=== PATIENT | female | born 1935 | race Caucasian/White ===

== ENCOUNTER 2016-08-05 13:18 | Emergency (ER) | payer MEDICARE ==
[~2016-08-05] VITALS: Ht 157.5 cm; Wt 67.2 kg
[2016-08-05 15:10] VITALS: TEMP 97.8
--- NOTE | 2016-08-05 15:23 | PD ---
HPI Chief Complaint: Fall Time Seen by Provider: 15:23 Travel History International Travel<30 days: No Contact w/Intl Traveler<30days: No Traveled to known affect area: No History of Present Illness HPI 81-year-old female with a history of hypertension, atrial fibrillation anticoagulated on Coumadin, CHF is brought to the emergency department by EMS for evaluation of right shoulder pain status post trip and fall. The patient states that she is here visiting friends and was going up to their condo, walking into the elevator when the elevator door closed too soon causing her to trip falling forward onto her right face and right shoulder. Denies loss of consciousness. Complains of pain in her right shoulder radiating down to her right hand. States that she is unable to move her right shoulder or elbow due to the pain. States she is having to hold her right arm up with her left arm due to the pain. She denies any loss of consciousness, headache, dizziness, nausea, vomiting, vision changes, neck pain, back pain, numbness or tingling. No other complaints. The patient is a snowbird from [place] that lives in [place] 6 months of the year but was visiting friends in [place] today. PFSH Past Medical History Hx Anticoagulant Therapy: Yes (WARFARIN ) Social History Tobacco Use: No Allergies-Medications (Allergen,Severity, Reaction): Coded Allergies: Iodine (Verified Allergy, Unknown, 08/05/16) Levaquin (Verified Allergy, Unknown, 08/05/16) Penicillin (Verified Allergy, Unknown, 08/05/16) Uncoded Allergies: ZICAM (Allergy, Unknown, 08/05/16) Review of Systems Except as stated in HPI: all other systems reviewed are Neg Physical Exam Narrative GENERAL: Well-nourished and well-developed pleasant patient in no acute distress. SKIN: There is a 1 cm laceration above the right eye. HEAD: Normocephalic and atraumatic. Mild swelling and bruising noted to the right periorbital and zygomatic arch with tenderness to palpation. EYES: No scleral icterus, injection, or drainage. PERRLA. EOMI. No hyphema present. ENT: No septal hematoma or hemotympanum noted. Oropharynx is clear and the airway is patent. NECK: Supple and the trachea is midline. No obvious deformities, crepitus, or midline tenderness noted. CARDIOVASCULAR: Regular rate and rhythm. RESPIRATORY: Breath sounds are equal bilaterally with no accessory muscle use, wheezing, rhonchi, or crackles. GASTROINTESTINAL: Abdomen is soft, non-tender, and nondistended. MUSCULOSKELETAL: Swelling of the right humerus with tenderness to palpation and decreased range of motion. No tenderness to palpation or swelling of the right elbow, forearm, wrist or hand. Assistant Front End Manager strength 5/5. Radial and ulnar pulses 2+ bilaterally. Capillary refill is within normal limits. Sensation is intact. No obvious deformities, swelling, cyanosis, or ecchymosis is present throughout the upper and lower extremities. Patient has full range of motion in lower extremities and left upper extremity. BACK: Nontender without any obvious deformities, bony point tenderness, or crepitus noted throughout the thoracic and lumbar vertebrae. NEUROLOGICAL: Awake, alert, and oriented. Normal speech and gait. Cranial nerves are grossly intact. Data Data Last Documented VS Vital Signs Date Time Temp Pulse Resp B/P Pulse Ox O2 Delivery O2 Flow Rate FiO2 08/05/16 16:23 60 18 175/81 97 Room Air 08/05/16 15:10 97.8 Orders Complete Blood Count With Diff (08/05/16 15:19) Comprehensive Metabolic Panel (08/05/16 15:19) Prothrombin Time / Inr (Pt) (08/05/16 15:19) Act Partial Throm Time (Ptt) (08/05/16 15:19) Iv Access Insert/Monitor (08/05/16 15:19) Ecg Monitoring (08/05/16 15:19) Oximetry (08/05/16 15:19) NPO (08/05/16 15:19) Sodium Chloride 0.9% Flush (Ns Flush) (08/05/16 15:30) Electrocardiogram (08/05/16 15:19) Morphine Inj (Morphine Inj) (08/05/16 15:30) Ct Brain W/O Iv Contrast(Rout) (08/05/16 15:19) Ct Cerv Spine W/O Contrast (08/05/16 15:19) Ct Facial Bones W/O Iv Cont (08/05/16 15:19) Humerus (Min 2vws) (08/05/16 15:19) Tetanus/Diphtheria Tox Adult (Tetanus/Di (08/05/16 15:30) Lidocai-Epi 1%-1:100,000 Inj (Xylocaine- (08/05/16 15:30) Splint Or Brace Apply/Monitor (08/05/16 17:21) Labs Laboratory Tests Test 08/05/16 15:48 White Blood Count 7.5 TH/MM3 Red Blood Count 4.28 MIL/MM3 Hemoglobin 13.7 GM/DL Hematocrit 40.4 % Mean Corpuscular Volume 94.5 FL Mean Corpuscular Hemoglobin 32.1 PG Mean Corpuscular Hemoglobin 34.0 % Concent Red Cell Distribution Width 13.1 % Platelet Count 195 TH/MM3 Mean Platelet Volume 9.0 FL Neutrophils (%) (Auto) 70.8 % Lymphocytes (%) (Auto) 19.6 % Monocytes (%) (Auto) 7.2 % Eosinophils (%) (Auto) 1.5 % Basophils (%) (Auto) 0.9 % Neutrophils # (Auto) 5.3 TH/MM3 Lymphocytes # (Auto) 1.5 TH/MM3 Monocytes # (Auto) 0.5 TH/MM3 Eosinophils # (Auto) 0.1 TH/MM3 Basophils # (Auto) 0.1 TH/MM3 CBC Comment DIFF FINAL Differential Comment Prothrombin Time 28.5 SEC Prothromb Time International 2.5 RATIO Ratio Activated Partial 34.2 SEC Thromboplast Time Sodium Level 136 MEQ/L Potassium Level 3.9 MEQ/L Chloride Level 102 MEQ/L Carbon Dioxide Level 26.9 MEQ/L Anion Gap 7 MEQ/L Blood Urea Nitrogen 18 MG/DL Creatinine 1.29 MG/DL Estimat Glomerular Filtration 39 ML/MIN Rate Random Glucose 128 MG/DL Calcium Level 8.6 MG/DL Total Bilirubin 0.5 MG/DL Aspartate Amino Transf 45 U/L (AST/SGOT) Alanine Aminotransferase 48 U/L (ALT/SGPT) Alkaline Phosphatase 228 U/L Total Protein 8.1 GM/DL Albumin 3.7 GM/DL [facility] Medical Decision Making Medical Screen Exam Complete: Yes Emergency Medical Condition: Yes Differential Diagnosis Humerus fracture versus dislocation versus facial fracture versus contusion versus intracranial hemorrhage Narrative Course 81-year-old female brought to the emergency department for evaluation of right shoulder pain and right facial pain status post trip and fall. She did fall and hit her right face, denies loss of consciousness. She is anticoagulated on warfarin. No focal neurologic deficits. The patient's right upper extremity is neurovascularly intact. IV access is obtained, labs were drawn and sent. X- ray imaging of the right humerus has been ordered and is pending. Head, neck and maxillofacial CT imaging has been ordered and is pending. CBC is unremarkable. CMP shows renal insufficiency with an elevated creatinine of 1.29, GFR 39. INR is 2.5. Head CT is negative for any acute abnormalities. X-ray of the right humerus shows an angulated comminuted fracture of the right proximal humerus distal to the surgical neck of the humeral neck. CT of the cervical spine is negative for any acute abnormalities. The patient is placed in a right arm sling and will be discharged with pain medication and instructions to follow-up with an orthopedic surgeon in 1-2 weeks. Discussed supportive care and when to return to the emergency department. Patient verbalizes understanding and agreement with treatment plan. I discussed the case with my attending physician Dr. Martin who is aware of the patients history, physical examination findings, and treatment plan. Procedures Procedure Narrative LACERATION LOCATION: Right eyebrow LENGTH: 1 cm NUMBER OF STITCHES/ROSANNE: 2 sutures REPAIR: The area of the laceration was prepped with Betadine and sterilely draped. The laceration was infiltrated with 1% lidocaine with epinephrine. The wound was copiously irrigated and explored without evidence of foreign body , tendon injury or neurovascular injury. The wound was closed using 2 sutures. This was a single layer repair. Antibiotic ointment and a sterile dressing was applied. The patient was advised to keep the dressing clean and dry. Patient tolerated the procedure well. Diagnosis Primary Impression: Closed fracture of right proximal humerus Qualified Code: S42.201A - Closed fracture of proximal end of right humerus, unspecified fracture morphology, initial encounter Additional Impressions: Contusion of periorbital region, right Laceration of right eyebrow Qualified Code: S01.111A - Laceration of right eyebrow, initial encounter Referrals: Rafi Bonilla MD Orthopedist 1 week Patient Instructions: General Instructions Additional Instructions: You may wash laceration gently with soap and water, have sutures removed in 5-7 days. Sling. Do not lift right arm. Apply ice for 20 minutes on, 20 minutes off. Take medication as prescribed with food and a full glass of water. Dot not take Lortab with alcohol or while driving. Be careful as it can make you drowsy. Follow-up with an orthopedic surgeon in the next 1-2 weeks. Return to the ED for any acute worsening of symptoms. Med/Other Pt SpecificInfo: Prescription(s) given Scripts Hydrocodone-Acetaminophen (Lortab)5-325 Mg Tab1 Tab PO Q6H PRN (PAIN GREATER THAN 6) #20 TAB Ref 0 Prov:Yee Martin MD 08/05/16 Disposition: 01 DISCHARGE HOME Condition: Stable Brianne Urbano Aug 05, 2016 15:23
[2016-08-05 15:27] VITALS: O2SAT 97
[2016-08-05] MEDS ORDERED: LIDOCAINE 1%/EPINEPHrine 1:100,000 SOLN 20 ML VIAL INFIL ONE (15:30)
[2016-08-05] MEDS ORDERED: MORPHINE SULFATE 4 MG/ML INJ IV PUSH ONE (15:30)
[2016-08-05] MEDS ORDERED: TETANUS/DIPHTHERIA TOXOID ADULT 0.5 ML VIAL IM ONE (15:30)
[2016-08-05] MEDS ORDERED: SODIUM CHLORIDE 0.9% FLUSH 5 ML FLUSH IVF PRN (15:30)
[2016-08-05 15:41] VITALS: BP 185/86; PULSE 62; RESP 18; O2SAT 97
[2016-08-05 16:23] VITALS: BP 175/81; PULSE 60; RESP 18; O2SAT 97
[2016-08-05 16:24] LABS: AUTOMATED NEUTROPHIL # 5.3 TH/MM3 (1.8-7.7); BASOPHIL # 0.1 TH/MM3 (0-0.2); BASOPHIL % 0.9 % (0.0-2.0); EOSINOPHIL # 0.1 TH/MM3 (0-0.4); EOSINOPHIL % 1.5 % (0.0-4.0); HEMATOCRIT 40.4 % (35.0-46.0); HEMO FLAGS DIFF FINAL; LYMPH % 19.6 % (9.0-44.0); LYMPHOCYTE # 1.5 TH/MM3 (1.0-4.8); MEAN CELL VOLUME 94.5 FL (80.0-100.0); MEAN CORPUSCULAR HEMOGLOBIN 32.1 PG (27.0-34.0); MONO % 7.2 % (0.0-8.0); NEUT % 70.8 % (16.0-70.0); PLATELET COUNT 195 TH/MM3 (150-450); RED BLOOD COUNT 4.28 MIL/MM3 (4.00-5.30); RED CELL DISTRIBUTION WIDTH 13.1 % (11.6-17.2); WHITE BLOOD COUNT 7.5 TH/MM3 (4.0-11.0)
[2016-08-05 16:30] LABS: APTT (PATIENT) 34.2 SEC (24.3-30.1); INTERNATIONAL NORMALIZED RATIO 2.5 RATIO; PROTHROMBIN TIME - PATIENT 28.5 SEC (9.8-11.6)
--- NOTE | 2016-08-05 16:45 | RADRPT ---
EXAM DATE/TIME: 08/05/2016 16:29 [facility] COMPARISON: No previous studies available for comparison. INDICATIONS : Right humerus pain and swelling after fall. MEDICAL HISTORY : None. SURGICAL HISTORY : None. ENCOUNTER: Initial ACUITY: 1 day PAIN SCORE: 10/10 LOCATION: Right proximal humerus. FINDINGS: Two view examination of the right humerus demonstrates a comminuted fracture through the proximal hum eral shaft just below the surgical neck. There remains well-seated within the glenoid fossa. CONCLUSION: Angulated comminuted fracture of the proximal right humerus distal to the surgical neck of the lukas l neck. Ollie Wang MD on August 05, 2016 at 16:42 Board Certified Radiologist. This report was verified electronically.
[2016-08-05 16:46] LABS: ALT (GPT) 48 U/L (10-53); ANION GAP 7 MEQ/L (5-15); AST (GOT) 45 U/L (15-37); BICARBONATE 26.9 MEQ/L (21.0-32.0); BLOOD UREA NITROGEN 18 MG/DL (7-18); CHLORIDE 102 MEQ/L (98-107); GLOMERULAR FILTRATION RATE 39 ML/MIN (>89); POTASSIUM 3.9 MEQ/L (3.5-5.1); SODIUM (NA) 136 MEQ/L (136-145)
[2016-08-05 16:48] LABS: ALKALINE PHOSPHATASE 228 U/L (45-117); TOTAL BILIRUBIN ADULT 0.5 MG/DL (0.2-1.0)
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
[2016-08-05] MEDS ORDERED: HYDR-3533 PO (17:22)
[2016-08-05] MEDS ORDERED: ACETAMINOPHEN/HYDROcodone 325 MG/5 MG TAB PO ONE (18:30)
[2016-08-05] MEDS ORDERED: ONDANSETRON ODT 4 MG TAB PO ONE (18:30)
[2016-08-05 18:44] VITALS: BP 126/59; PULSE 61; RESP 18; O2SAT 98
[2016-08-05] MEDS ORDERED: ACETAMINOPHEN 500 MG CPLT PO ONE (19:00)
--- NOTE | 2016-08-06 18:44 | EKG ---
Date Performed: 08/05/2016 Time Performed: 15:39:03 PTAGE: 81 years EKG: Sinus rhythm WITH OCCASIONAL SUPRAVENTRICULAR PREMATURE COMPLEXES NONSPECIFIC T-WAVE ABNORMALITY BORDERLINE ECG NO PREVIOUS TRACING DOCTOR: Tato Aleman Interpretating Date/Time 08/06/2016 18:39:34
== END 2016-08-05 20:34 | disposition home or self-care (01) ==
LOC: NEPC 13:18
DX: S42.201A Unspecified fracture of upper end of right humerus, initial encounter for closed fracture (principal); S01.111A Laceration without foreign body of right eyelid and periocular area, initial encounter; I48.91 Unspecified atrial fibrillation; R94.31 Abnormal electrocardiogram [ECG] [EKG]; I10 Essential (primary) hypertension; W01.198A Fall on same level from slipping, tripping and stumbling with subsequent striking against other object, initial encounter; Y93.01 Activity, walking, marching and hiking; Y92.038 Other place in apartment as the place of occurrence of the external cause; Z79.01 Long term (current) use of anticoagulants; Z23 Encounter for immunization
CPT/HCPCS: 12011; 70450; 70486; 72125; 73060; 80053; 85025; 85610; 85730; 90471; 90714; 93005; 96374; 99284; J2270; L1830